=== PATIENT | male | born 1985 | race Caucasian/White ===

== ENCOUNTER 2022-03-21 10:20 | Emergency (ER) | payer MEDICAID ==
[~2022-03-21] VITALS: Ht 177.8 cm; Wt 84.1 kg
[2022-03-21 10:26] VITALS: BP 145/99
[2022-03-21] MEDS ORDERED: KETOROLAC TROMETHAMINE 60 MG/2 ML VIAL IM ONE (12:30)
== END 2022-03-21 15:30 | disposition home or self-care (01) ==
LOC: EMS 10:24
DX: S43.401A Unspecified sprain of right shoulder joint, initial encounter (principal); V29.888A Rider (driver) (passenger) of other motorcycle injured in other specified transport accidents, initial encounter; Y93.89 Activity, other specified; Y92.89 Other specified places as the place of occurrence of the external cause; Y99.8 Other external cause status
CPT/HCPCS: 99285; 70450; 73030; 71250; 72125; 74150; 96372; 72192; J1885